=== PATIENT | male | born 1995 | race Two or more races ===

== ENCOUNTER 2019-11-11 05:49 | Emergency (ER) | payer OTHER, MEDICAID ==
[~2019-11-11] VITALS: Ht 175.3 cm; Wt 95.7 kg
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
[2019-11-11 06:54] VITALS: BP 144/87
--- NOTE | 2019-11-11 07:54 | NUR ---
Patient discharged in custody in stable condition. Written and verbal after care instructions given. Patient verbalizes understanding of instruction.
== END 2019-11-11 07:55 ==
LOC: ER 05:50
DX: S09.8XXA Other specified injuries of head, initial encounter (principal); Y08.89XA Assault by other specified means, initial encounter; Y93.89 Activity, other specified; Y92.89 Other specified places as the place of occurrence of the external cause; Y99.8 Other external cause status
CPT/HCPCS: 70160-TC